=== PATIENT | female | born 1940 ===

== ENCOUNTER → 2018-12-01 | Outpatient (REF) | payer MEDICARE, BC | LOC: M LAB REF 16:37 | PROVIDERS: ATTEND Internal Medicine | DX: I11.0 Hypertensive heart disease with heart failure (principal); E78.5 Hyperlipidemia, unspecified; I42.9 Cardiomyopathy, unspecified ==

== ENCOUNTER → 2021-08-14 | Outpatient (CLI) | payer MEDICARE, BC | LOC: M WUC 09:01 | PROVIDERS: ATTEND Physician Assistant | DX: M77.32 Calcaneal spur, left foot (principal); M79.672 Pain in left foot ==

== ENCOUNTER → 2024-08-08 | Outpatient (REF) | payer MEDICARE, BC ==
[2024-08-08 13:16] LABS: FOLATE 8.9 NG/ML (>5.4)
== END ==
LOC: M LAB REF 12:08
PROVIDERS: ATTEND Internal Medicine
DX: D53.1 Other megaloblastic anemias, not elsewhere classified (principal)